=== PATIENT | male | born 1970 | race Caucasian/White ===

== ENCOUNTER → 2019-06-23 | Outpatient (CLI) | payer BC ==
--- NOTE | 2019-06-23 17:17 | REP ---
MRI of the brain without contrast: INDICATION: Hearing loss. COMPARISON: None Technique: Multiplanar multisequence MRI of the brain was performed without contrast including axial thin T1 and T2 weighted images through the internal auditory canals. Findings: There is no restricted diffusion to suggest acute ischemia or infarction. There are 3 punctate T2 hyperintensities within the periventricular and subcortical white matter which are nonspecific. The ventricles and sulci are symmetric. There is no midline shift or mass effect. There is no extra-axial fluid collection. The visualized flow voids are patent. There is susceptibility artifact through the orbital globes. The globes are intact. The visualized paranasal sinuses and mastoid air cells are clear. The right anterior inferior cerebellar artery ICA loops within the right internal auditory meatus. The left cerebellopontine angles are normal. No mass is identified. The internal ear structures are unremarkable. Impression: 1. Vascular loop within the right internal auditory meatus. No IAC or brain mass identified. 2. Minimal white matter changes, nonspecific. Electronically Signed by Ann Marie Gupta MD 06/23/2019 06:38 P
== END ==
LOC: M RAD 14:23
PROVIDERS: ATTEND Otolaryngology
DX: H93.8X1 Other specified disorders of right ear (principal); H90.A31 Mixed conductive and sensorineural hearing loss, unilateral, right ear with restricted hearing on the contralateral side

== ENCOUNTER → 2020-01-10 | Outpatient (CLI) | payer BC ==
--- NOTE | 2020-01-10 20:10 | REP ---
Left elbow series: Four views. History: Pain in left elbow. Findings: Four views of the left elbow demonstrate normal bones, joints, and soft tissues. No fracture subluxation or joint effusion is seen. Impression: Negative left elbow radiographs. Electronically Signed by Aram Forbes MD 01/10/2020 08:01 P
== END ==
LOC: M ADAMS 18:39
PROVIDERS: ATTEND Physician Assistant
DX: M25.522 Pain in left elbow (principal)

== ENCOUNTER → 2020-11-12 | Outpatient (CLI) | payer BC | LOC: M LABSMTC 09:04 | PROVIDERS: ATTEND Anesthesiology | DX: Z01.812 Encounter for preprocedural laboratory examination (principal); Z20.828 Contact with and (suspected) exposure to other viral communicable diseases ==

== ENCOUNTER 2020-11-17 07:18 | Day surgery (SDC) | payer BC ==
[~2020-11-17] VITALS: Ht 175.3 cm; Wt 83.0 kg
[~2020-11-17 07:18] MED LIST: NS 1,000 ML IV ONE
[2020-11-17] MEDS ORDERED: LIDOCAINE 2% 100MG/5ML SDV (FOR ANES.) As Ordered ONE (07:52)
[2020-11-17] MEDS ORDERED: propofoL 200 MG/20 ML VIAL As Ordered ONE ×2 (07:52→08:44)
--- NOTE | 2020-11-17 08:53 | ROOR ---
Patient Name: Flex Phillips Procedure Date: 11/17/2020 8:29 AM Date of : 1970 Age: 50 Room: [facility] Gender: Male Note Status: Finalized Procedure: Total Colonoscopy to Cecum Indications: Screening for colorectal malignant neoplasm Providers: Néstor Sagastume MD Referring MD: Isaac Odonnell Requesting Provider: Medicines: Monitored Anesthesia Care Complications: No immediate complications. Procedure: Pre-Anesthesia Assessment: - The heart rate, respiratory rate, oxygen saturations, blood pressure, adequacy of pulmonary ventilation, and response to care were monitored throughout the procedure. The Colonoscope was introduced through the anus and advanced to the terminal ileum, with identification of the appendiceal orifice and IC valve. The colonoscopy was performed without difficulty. The patient tolerated the procedure well. The quality of the bowel preparation was excellent. Findings: The perianal and digital rectal examinations were normal. Non-bleeding internal hemorrhoids were found during retroflexion. The hemorrhoids were small and Grade I (internal hemorrhoids that do not prolapse). No other significant abnormalities were identified in a careful examination of the remainder of the colon. The terminal ileum appeared normal. The exam was otherwise without abnormality on direct and retroflexion views. Impression: - Non-bleeding internal hemorrhoids. - The examined portion of the ileum was normal. - The examination was otherwise normal on direct and retroflexion views. - No specimens collected. - The exam was otherwise normal to the cecum. Recommendation: - Patient has a contact number available for emergencies. The signs and symptoms of potential delayed complications were discussed with the patient. Return to normal activities tomorrow. Written discharge instructions were provided to the patient. - High fiber diet. - Discharge patient to home. - Continue present medications. - Repeat colonoscopy in 10 years for screening purposes. - Return to referring physician. - The findings and recommendations were discussed with the patient. Procedure Code(s): --- Professional --- 79597, Colonoscopy, flexible; diagnostic, including collection of specimen(s) by brushing or washing, when performed (separate procedure) Diagnosis Code(s): --- Professional --- Z12.11, Encounter for screening for malignant neoplasm of colon K64.0, First degree hemorrhoids CPT copyright 2019 [employer]. All rights reserved. The codes documented in this report are preliminary and upon fusion operator review may be revised to meet current compliance requirements. Néstor Sagastume MD Néstor Sagastume MD 11/17/2020 8:52:49 AM Electronically signed by Néstor Sagastume MD Number of Addenda: 0 Note Initiated On: 11/17/2020 8:29 AM Estimated Blood Loss: Estimated blood loss: none.
[2020-11-17 09:15] VITALS: BP 111/78
== END 2020-11-17 09:20 | disposition home or self-care (01) ==
LOC: M OPP 07:18
PROVIDERS: ATTEND Internal Medicine Gastroenterology
DX: Z12.11 Encounter for screening for malignant neoplasm of colon (principal); K64.0 First degree hemorrhoids

== ENCOUNTER 2023-03-16 10:21 | Emergency (ER) | payer BC ==
[~2023-03-16] VITALS: Ht 175.3 cm; Wt 80.7 kg
[2023-03-16] MEDS ORDERED: LIDOCAINE 1% MDV 20ML VIAL SC ONE (13:20)
[2023-03-16] MEDS ORDERED: cefTRIAXone 500MG VIAL IM ONE (13:40)
[2023-03-16] MEDS ORDERED: LIDOCAINE 1% SDV 5ML VIAL DILUENT ONE (13:40)
[2023-03-16] MEDS ORDERED: DERMABOND TOPICAL SKIN ADHESIVE TOP ONE (13:40)
[2023-03-16] MEDS ORDERED: CEPH500C PO (13:52)
[2023-03-16 14:06] VITALS: BP 137/85
== END 2023-03-16 14:17 | disposition home or self-care (01) ==
LOC: M ED 10:21
DX: S62.666B Nondisplaced fracture of distal phalanx of right little finger, initial encounter for open fracture (principal); X58.XXXA Exposure to other specified factors, initial encounter; Y92.009 Unspecified place in unspecified non-institutional (private) residence as the place of occurrence of the external cause
CPT/HCPCS: 12001; 73130; 96372; 99283; J0696

== ENCOUNTER → 2024-07-09 | Outpatient (CLI) | payer BC ==
[~2024-07-09] MED LIST changes: +CEPH500C PO; -NS 1,000 ML IV ONE
== END ==
LOC: M WUC 10:16
PROVIDERS: ATTEND Physician Assistant Medical
DX: M54.50 Low back pain, unspecified (principal); M47.817 Spondylosis without myelopathy or radiculopathy, lumbosacral region; M47.816 Spondylosis without myelopathy or radiculopathy, lumbar region; M47.814 Spondylosis without myelopathy or radiculopathy, thoracic region

== ENCOUNTER 2024-09-01 09:20 | Day surgery (SDC) | payer BC ==
[~2024-09-01] VITALS: Ht 175.3 cm; Wt 83.4 kg
[~2024-09-01 09:20] MED LIST changes: +LIDOCAINE 2% 100MG/5ML SDV (FOR ANES.) As Ordered ONE; +ONDANSETRON 4MG 2ML VIAL As Ordered ONE; +propofoL 200 MG/20 ML VIAL As Ordered ONE
[2024-09-01] MEDS ORDERED: LR 1,000 ML IV SCH (09:25)
[2024-09-01] MEDS ORDERED: NS 1,000 ML IV SCH (09:40)
[2024-09-01] MEDS ORDERED: ACETAMINOPHEN 1000MG 100ML IV BAG As Ordered ONE (09:46)
[2024-09-01] MEDS: ceFAZolin SOD 2 GM in IV 1 EA IV ONE (10:05)
[2024-09-01] MEDS: LIDOCAINE 1% SDV 30ML VIAL As Ordered ONE (10:07)
[2024-09-01 11:25] VITALS: BP 136/70; TEMP 97.8; O2SAT 98
== END 2024-09-01 11:28 | disposition home or self-care (01) ==
LOC: M SDC 09:20
PROVIDERS: ATTEND Podiatrist Foot & Ankle Surgery
DX: M20.21 Hallux rigidus, right foot (principal)
CPT/HCPCS: 28289; J0131; J0665; J0690; J1100; J2405

== ENCOUNTER → 2025-10-25 | Outpatient (CLI) | payer BC ==
[~2025-10-25] MED LIST changes: -LIDOCAINE 2% 100MG/5ML SDV (FOR ANES.) As Ordered ONE; -ONDANSETRON 4MG 2ML VIAL As Ordered ONE; -propofoL 200 MG/20 ML VIAL As Ordered ONE
== END ==
LOC: M WUC 13:05
PROVIDERS: ATTEND Physician Assistant Medical
DX: M54.50 Low back pain, unspecified (principal); M25.511 Pain in right shoulder